=== PATIENT | female | born 1985 | race Caucasian/White ===

== ENCOUNTER → 2020-04-12 14:18 | Outpatient (CLI) | payer BC, SELFPAY ==
--- NOTE | ~2020-04-12 | XR_ITS ---
XR lumbar spine 2-3V 04/12/2020 14:37 Indication: Low back pain Procedure: 3 views lumbar spine Comparison: No prior studies for comparison. Findings: Vertebral body and disc heights are preserved. No fracture or traumatic malalignment. No ev idence for spondylolisthesis. Sacral foramen are symmetric. Pedicles intact. Small ventral osteophyte s at L3-4. Impression: 1: No significant abnormality of the lumbar spine. Reviewed, dictated and finalized at location B. Impression: 1: No significant abnormality of the lumbar spine.
== END ==
PROVIDERS: PCP Family Medicine; Visit Provider Nurse Practitioner
DX: M54.40 Lumbago with sciatica, unspecified side (principal)
CPT/HCPCS: 72100

== ENCOUNTER 2020-12-27 11:52 | Outpatient (CLI) | payer BC, SELFPAY ==
[2020-12-27 18:23] LABS: Basophils Absolute Auto 0.1 K/mm3 (0.0-0.1); Basophils Percent Auto 0.5 % (0.2-1.2); Eosinophils Percent Auto 0.3 % (0-4.4); Hematocrit 42.7 % (37.0-47.0); Hemoglobin 13.9 g/dL (12.0-15.0); Immature Granulocyte Absolute 0.03 K/mm3 (0.00-0.031); Immature Granulocyte Percent A 0.3 % (0-0.5); Lymphocytes Absolute Auto 2.83 K/mm3 (0.9-3.2); Lymphocytes Percent Auto 24.2 % (18.3-44.2); Mean Corpuscular HGB Conc 32.6 g/dl (32-36); Mean Corpuscular Hemoglobin 30.5 pg (26-34); Mean Corpuscular Volume 93.8 fl (80-100); Monocytes Absolute Auto 0.6 K/mm3 (0.1-0.6); Monocytes Percent Auto 5.3 % (2.6-8.5); Neutrophils Absolute Auto 8.1 K/mm3 (1.3-6.7); Neutrophils Percent Auto 69.4 % (45.5-73.1); Platelet Count Result 355 k/mm3 (150-375); Red Blood Count 4.55 M/mm3 (4.2-5.4); White Blood Count 11.7 K/mm3 (4.5-10.0)
[2020-12-27 18:26] LABS: Add Urine Microscopic? NO; Appearance Urine Clear (Clear); Bilirubin Urine Negative (Negative); Blood Urine Negative (Negative); Color Urine Yellow (Yellow); Glucose Urine UA Negative (Negative); Ketones Urine Negative (Negative); Leukocyte Esterase Ur Negative LEU/UL (Negative); Nitrate Urine Negative (Negative); Protein Urine Negative (Negative); Specific Grav Ur 1.014 (1.001-1.035); Urobilinogen Urine Negative mg/dL (<2.0)
[2020-12-27 20:31] LABS: Anion Gap 7 mmol/L (8-16); Blood Urea Nitrogen 20 mg/dL (7-17); CRP 0.9 mg/dL (<1.0); Calcium 9.6 mg/dL (8.4-10.2); Carbon Dioxide 26 mmol/L (22-30); Chloride 104 mmol/L (98-107); Estimated Glomerular Filt Rate > 60; Glucose 95 mg/dL (65-105); Potassium 4.2 mmol/L (3.4-5.0); Sodium 137 mmol/L (137-145)
[2020-12-27 20:58] LABS: Thyroid Stimulating Hormone 0.876 uIU/mL (0.465-4.680)
== END 2020-12-27 11:53 | disposition home or self-care (01) ==
LOC: ANHBWCLAB 11:55
PROVIDERS: PCP Family Medicine; Visit Provider Family Medicine
DX: R42 Dizziness and giddiness (principal); Z79.899 Other long term (current) drug therapy
CPT/HCPCS: 36415; 80048; 81003; 84443; 85025; 86140

== ENCOUNTER 2021-08-29 09:10 | Outpatient (CLI) | payer BC, SELFPAY ==
--- NOTE | ~2021-08-29 | XR_ITS ---
XR knee LT 3V 08/29/2021 09:24 Indication: Left knee pain Procedure: 3 views of the left knee Comparison: No prior studies for comparison. Findings: There is no mild-moderate tricompartment osteoarthritis of the left knee. Small joint effus ion. No fracture, subluxation or dislocation. Impression: 1: Mild-moderate tricompartment osteoarthritis of the left knee. Reviewed, dictated and finalized at location B. UNT ENGINEER Impression: 1: Mild-moderate tricompartment osteoarthritis of the left knee.
== END 2021-08-29 09:11 | disposition home or self-care (01) ==
LOC: ANHBWCIMG 09:12
PROVIDERS: PCP Family Medicine; Visit Provider Family Medicine
DX: M17.12 Unilateral primary osteoarthritis, left knee (principal); M25.462 Effusion, left knee
CPT/HCPCS: 73562

== ENCOUNTER 2021-11-30 09:37 | Outpatient (CLI) | payer BC, SELFPAY ==
[2021-11-30 18:56] LABS: Hematocrit 44.2 % (37.0-47.0); Hemoglobin 13.8 g/dL (12.0-15.0); Mean Corpuscular HGB Conc 31.2 g/dl (32-36); Mean Corpuscular Hemoglobin 30.7 pg (26-34); Mean Corpuscular Volume 98.2 fl (80-100); Mean Platelet Volume 9.6 fl (7.4-10.4); Platelet Count Result 330 k/mm3 (150-375); White Blood Count 8.4 K/mm3 (4.5-10.0)
[2021-11-30 19:00] LABS: Iron 141 ug/dL (37-170)
[2021-11-30 19:02] LABS: Alanine Aminotransferase 17 U/L (4-35); Albumin Level 4.2 g/dL (3.5-5.1); Alkaline Phosphatase 64 U/L (38-126); Anion Gap 10 mmol/L (8-16); Aspartate Amino Transferase 24 U/L (14-36); Bilirubin,Total 0.5 mg/dL (0.2-1.3); Blood Urea Nitrogen 20 mg/dL (7-17); Calcium 9.1 mg/dL (8.4-10.2); Carbon Dioxide 21 mmol/L (22-30); Chloride 104 mmol/L (98-107); Cholesterol 212 mg/dL (0-200); Estimated Glomerular Filt Rate > 60; Glucose 90 mg/dL (65-110); HDL Direct 92 mg/dL; Potassium 4.7 mmol/L (3.4-5.0); Sodium 135 mmol/L (137-145); Triglycerides 156 mg/dL (<150)
[2021-11-30 19:11] LABS: Percent Iron Saturation 36 % (20-50)
[2021-11-30 19:14] LABS: LDL Cholesterol Direct 86 mg/dL
[2021-11-30 21:20] LABS: SPREG INTERNAL CONTROL Positive; Serum Qual hCG Negative
== END 2021-11-30 09:38 | disposition home or self-care (01) ==
LOC: ANHBWCLAB 09:38
PROVIDERS: PCP Family Medicine; Visit Provider Family Medicine
DX: R42 Dizziness and giddiness (principal); R11.0 Nausea; R51.9 Headache, unspecified
CPT/HCPCS: 36415; 80053; 80061; 82607; 83540; 83550; 84703; 85027

== ENCOUNTER 2021-12-23 14:34 | Outpatient (CLI) | payer BC, SELFPAY ==
--- NOTE | ~2021-12-23 | CT_ITS ---
EXAMINATION: CT brain wo con EXAM DATE: 12/23/2021 14:50 INDICATION: R51.9 - Headache, unspecified. Dizziness and nausea. Symptoms 6 weeks. TECHNIQUE: Spiral CT of the head was performed without contrast. Axial, coronal and sagittal images were reviewed. The dose-length product (DLP) for this examination was 605.33 mGy-cm. The exposure w as tailored according to patient size, and iterative reconstruction (ASIR) was used as additional dos e reduction technique. There is no prior study for comparison. FINDINGS: There is no acute intraparenchymal hemorrhage. No evidence of intraparenchymal brain mass lesion. No evidence of acute infarction. There is no mass effect or midline shift. The ventricles are normal in size. There are no extra-axial collections. There are no acute calvarial fractures. T he orbits are unremarkable. Soft tissue is unremarkable. The visualized sinuses and mastoid air citlali ls are well aerated. IMPRESSION: 1. Unremarkable head CT examination. Reviewed, dictated and finalized at location G.
== END 2021-12-23 14:35 | disposition home or self-care (01) ==
LOC: ANHIMG 14:36
PROVIDERS: PCP Family Medicine; Visit Provider Family Medicine
DX: R51.9 Headache, unspecified (principal); R42 Dizziness and giddiness; R11.0 Nausea
CPT/HCPCS: 70450

== ENCOUNTER 2022-04-01 14:36 | Emergency (ER) | payer BC, SELFPAY ==
[2022-04-01 14:41] VITALS: BP 148/68; PULSE 117; RESP 16; TEMP 37.1; O2SAT 98
--- NOTE | 2022-04-01 14:50 | ED.GENADULT ---
HPI - General Adult General Chief complaint: Nausea/Vomiting/Diarrhea Stated complaint: Headache/Vomiting/Chills Time Seen by Provider: 04/01/22 14:51 Source: patient and RN notes reviewed Mode of arrival: ambulatory Limitations: no limitations History of Present Illness HPI narrative: 36-year-old female presented for complaint of headache, nausea, diarrhea, body aches onset yesterday. Denies sick contacts. She denies cough, shortness of breath, or vomiting. She took Tylenol this morning for symptoms. She is vaccinated for COVID. Related Data Home Medications Medication Instructions Recorded Confirmed norgestimate 0.25 mg-ethinyl 1 tablet PO DAILY 10/02/19 04/01/22 estradiol 35 mcg tablet (Sprintec (28)) adalimumab 40 mg/0.4 mL 40 mg subcut WEEKLY 12/27/20 04/01/22 subcutaneous syringe kit (Humira(CF)) Allergies Allergy/AdvReac Type Severity Reaction Status Date / Time No Known Allergies Allergy Verified 04/01/22 14:58 Review of Systems Review of Systems: CONSTITUTIONAL: Endorses malaise, chills EYES: Denies visual changes, redness, or discharge ENT: Reports rhinorrhea, congestion, otalgia, sore throat CARDIOVASCULAR: Denies chest pain, palpitations, edema RESPIRATORY: Reports post nasal drainage. Denies dyspnea GASTROINTESTINAL: Denies abdominal pain, vomiting SKIN: Denies rash or itching MUSCULOSKELETAL: Endorses myalgia PMFSH Past Medical History Medical History Endometriosis Tubal Surgical History Surgical History H/O section Hx of tonsillectomy Family History Family History Father Hypertension Family history of diabetes mellitus in first degree relative Family history of type 2 diabetes mellitus Mother Hypertension Patient's mother is in good health Grandparent Cancer Grandparent Heart attack Social History Social History Smoking packs per day: 1 Smoking cigarettes per day: 20.0 Years smoked: 10 Smoking pack-years: 10.00 Smoking status: Current every day smoker Second hand tobacco smoke exposure: No Smoking end date: 07/04/20 Alcohol intake: never Substance use: never Exam Narrative: GENERAL: Ill-appearing, tearful nontoxic no acute distress. EYES: conjunctivae clear ENT: Mucous membranes moist. TM pearly stone with dull light reflex bilaterally; no tragal tenderness. Oropharynx erythematous without lesions or exudate CHEST: Clear to auscultation, breath sounds equal. HEART: Regular rate and rhythm. No murmur heard. SKIN: Warm, dry, no rash. NEURO: Alert and oriented x3. PSYCH: Normal mood and affect Course Course Emergency Course: Patient is aware of diagnosis, understands and agrees to treatment plan. Anticipatory guidance given. Patient agrees to follow-up as directed and is aware of reasons to seek care at the emergency department. Portions of this record may have been created with voice recognition software Level of Care: Express Care Visit Vital Signs Vital signs: Vital Signs Temperature 98.8 F 04/01/22 14:41 Pulse Rate 117 H 04/01/22 14:41 Respiratory Rate 16 04/01/22 14:41 Blood Pressure 148/68 H 04/01/22 14:41 Pulse Oximetry 98 04/01/22 14:41 Oxygen Delivery Room Air 04/01/22 14:41 Temperature 98.8 F 04/01/22 14:59 Pulse Rate 117 H 04/01/22 14:59 Respiratory Rate 16 04/01/22 14:59 Blood Pressure 148/68 H 04/01/22 14:59 Pulse Oximetry 98 04/01/22 14:59 Oxygen Delivery Room Air 04/01/22 14:59 reviewed Medical Decision Making [facility] Narrative Medical decision making narrative: Zofran and tylenol given, pt reports mild improvement in symptoms. Pt is afebrile. Denies abd pain or cough/sob. Flu strep and covid negative; pcr sent. Adv
[2022-04-01 14:59] VITALS: BP 148/68; PULSE 117; RESP 16; TEMP 37.1; O2SAT 98
[2022-04-01] MEDS: ACETAMINOPHEN 500 MG TABLET 1000 MG PO (15:02)
[2022-04-01] MEDS: ONDANSETRON HCL ODT 4 MG TABLET SUBLINGUAL (15:03)
[2022-04-01 18:13] LABS: SARS-CoV-2 RNA PCR Positive
== END 2022-04-01 16:08 | disposition home or self-care (01) ==
PROVIDERS: Emergency Provider Nurse Practitioner Family; PCP Family Medicine
DX: U07.1 COVID-19 (principal); Z87.891 Personal history of nicotine dependence; N80.9 Endometriosis, unspecified
CPT/HCPCS: 87081; 87426; 87804; 87880; 99213; A9270; C9803; G0463; U0003; U0005

== ENCOUNTER 2022-08-23 13:53 | Emergency (ER) | payer BC, SELFPAY ==
--- NOTE | ~2022-08-23 | XR_ITS ---
EXAMINATION: XR chest 2V 08/23/2022 14:20 INDICATION: Chest pain PROCEDURE: PA and lateral views of the chest COMPARISON: 08/08/2017 FINDINGS: The lungs are clear. The cardiomediastinal silhouette is within normal limits. There are no pleural effusions. There is no pneumothorax suspected. IMPRESSION: 1: NO ACUTE CARDIOPULMONARY DISEASE. Reviewed, dictated and finalized at location B. EY TECHNICIAN
--- NOTE | ~2022-08-23 | US_ITS ---
EXAMINATION: US right upper quadrant DATE: 08/23/2022 16:43 INDICATION: epigastric pain TECHNIQUE: Multiple grayscale and Doppler ultrasound images of the right upper quadrant were obtained . COMPARISON: None available. FINDINGS: Pancreas obscured by bowel gas. The liver is enlarged with increased echogenicity and haider l echotexture. Decrease in the right lobe hemangioma. No surface nodularity. Normal hepatopetal flow in the main portal vein. 4 mm gallbladder wall. Positive sonographic Chacko sign. The common bile maryann t measures 4 mm. IMPRESSION: Sonographic findings may reflect acute cholecystitis in the appropriate clinical context. Echogenic l iver, most commonly due to steatosis but also can be seen with hepatitis and fibrosis. Reviewed, dictated and finalized at location K. RAL RESOURCES TECHNICIAN IMPRESSION: Sonographic findings may reflect acute cholecystitis in the appropriate clinica l context. Echogenic liver, most commonly due to steatosis but also can be seen with hepatitis and fibrosis.
--- NOTE | 2022-08-23 13:54 | ECG_ITS ---
Measurements Intervals Thurman Rate: 101 P: 69 DC: 146 QRS: 47 QRSD: 86 T: 2 QT: 317 QTc: 411 Interpretive Statements SINUS TACHYCARDIA NONSPECIFIC ST & T-WAVE ABNORMALITY- ANT/INF LEADS BORDERLINE ECG ABNORMAL RHYTHM ECG NO PREVIOUS ECG AVAILABLE FOR COMPARISON Electronically Signed On 08-23-2022 15:28:29 TEXTILE MACHINE MECHANIC by Khanh Villarreal D.O.
[2022-08-23 13:59] VITALS: BP 154/84; PULSE 97; RESP 16; TEMP 36.4; O2SAT 100
[2022-08-23 14:18] LABS: Basophils Percent Auto 0.4 % (0.2-1.2); Eosinophils Absolute Auto 0.1 K/mm3 (0-0.3); Eosinophils Percent Auto 0.5 % (0-4.4); Hematocrit 42.9 % (37.0-47.0); Immature Granulocyte Absolute 0.03 K/mm3 (0.00-0.031); Immature Granulocyte Percent A 0.3 % (0-0.5); Lymphocytes Percent Auto 31.7 % (18.3-44.2); Mean Corpuscular HGB Conc 32.6 g/dl (32-36); Mean Corpuscular Hemoglobin 30.8 pg (26-34); Mean Corpuscular Volume 94.5 fl (80-100); Mean Platelet Volume 9.2 fl (7.4-10.4); Monocytes Absolute Auto 0.5 K/mm3 (0.1-0.6); Monocytes Percent Auto 5.1 % (2.6-8.5); Neutrophils Absolute Auto 6.3 K/mm3 (1.3-6.7); Platelet Count Result 336 k/mm3 (150-375); Red Blood Count 4.54 M/mm3 (4.2-5.4); Red Cell Distribution Width 13.1 % (11.5-14.5); White Blood Count 10.1 K/mm3 (4.5-10.0)
[2022-08-23 14:26] LABS: Alanine Aminotransferase 24 U/L (6-35); Albumin Level 4.3 g/dL (3.5-5.1); Alkaline Phosphatase 62 U/L (38-126); Anion Gap 5 mmol/L (8-16); Aspartate Amino Transferase 27 U/L (14-36); Bilirubin,Total 0.5 mg/dL (0.2-1.3); Blood Urea Nitrogen 15 mg/dL (7-17); Calcium 9.1 mg/dL (8.4-10.2); Carbon Dioxide 25 mmol/L (22-30); Chloride 105 mmol/L (98-107); Estimated CRCL calculation 123 ml/min; Estimated Glomerular Filt Rate > 60; Glucose 88 mg/dL (65-110); Lipase 82 U/L (23-300); Potassium 4.1 mmol/L (3.4-5.0); Sodium 135 mmol/L (137-145)
[2022-08-23 14:29] LABS: Partial Thromboplastin Time 28.5 SECONDS (22.3-36.8); Prothrombin Time 12.4 Seconds (11.1-14.7)
[2022-08-23 14:38] LABS: Troponin I < 0.012 ng/mL (0.000-0.034)
[2022-08-23 16:24] VITALS: BP 96/81; PULSE 92; RESP 17; O2SAT 98
[2022-08-23 17:24] LABS: D Dimer 0.41 ug/mL (<0.48)
[2022-08-23 17:31] LABS: Troponin I < 0.012 ng/mL (0.000-0.034)
[2022-08-23] MEDS: MORPHINE SULFATE (*CRX) 4 MG/ML INJ IV PUSH (17:33)
--- NOTE | 2022-08-23 17:44 | ED.GENADULT ---
HPI - General Adult General Chief complaint: Chest Pain Stated complaint: chest, back pain Time Seen by Provider: 08/23/22 15:53 History of Present Illness HPI narrative: Patient is a 36-year-old female who presents ER with chest pain. Ongoing since yesterday morning. Constant. Has waves where the pain increases. It radiates to her back. Not associated with eating or drinking nor is associate with exertion. No dyspnea. No runny nose or sore throat or cough. Has found no alleviating factors. Related Data Home Medications Medication Instructions Recorded Confirmed adalimumab 40 mg/0.4 mL 40 mg subcut WEEKLY 12/27/20 04/01/22 subcutaneous syringe kit (Humira(CF)) Allergies Allergy/AdvReac Type Severity Reaction Status Date / Time No Known Allergies Allergy Verified 08/02/22 08:26 Review of Systems Review of Systems: All systems reviewed & are unremarkable except as noted in HPI and below Constitutional: Constitutional: Denies chills, Denies fatigue and Denies fever(s) ENT: Denies nasal congestion and Denies sore throat Cardiovascular: Cardiovascular: Reports chest pain, Denies rapid heart rate and Denies radiating jaw, neck or arm pain Comments: Radiates to the back Respiratory: Respiratory: Denies cough and Denies dyspnea Gastrointestinal: Gastrointestinal: Denies abdominal pain, Denies heartburn, Denies nausea and Denies vomiting Genitourinary: Genitourinary: Denies dysuria and Denies flank pain Musculoskeletal: Musculoskeletal: Reports back pain, Denies arthralgias and Denies joint swelling PMFSH Past Medical History Medical History Endometriosis Tubal Surgical History Surgical History H/O section Hx of tonsillectomy Family History Family History Father Hypertension Family history of diabetes mellitus in first degree relative Family history of type 2 diabetes mellitus Mother Hypertension Patient's mother is in good health Grandparent Cancer Grandparent Heart attack Social History Social History Smoking packs per day: 1 Smoking cigarettes per day: 20.0 Years smoked: 10 Smoking pack-years: 10.00 Smoking status: Current every day smoker Second hand tobacco smoke exposure: No Smoking end date: 07/04/20 Alcohol intake: never Substance use: never Exam Narrative: GENERAL: Well-appearing, well-nourished, and in no acute distress. HEAD: Normocephalic, atraumatic. EYES: PERRL and EOMI. ENT: Mucous membranes moist. CHEST: Clear to auscultation. No respiratory distress. HEART: Regular rate and rhythm. Normal peripheral pulses. ABDOMEN: Soft, nontender, nondistended, normal active bowel sounds. EXTREMITIES: Normal range of motion. No edema. SKIN: Warm, dry, no rash. NEURO: Alert and oriented x3. PSYCH: Normal mood and affect. Course Course Emergency Course: Symptoms seem consistent with gallbladder issues. Discussed case with Dr. Hughes with general surgery. Recommends treating patient with oral antibiotics, low-fat diet, and pain/nausea control. He will follow the patient up in clinic next week. Patient aware of return precautions and treatment plan is verbalized understanding. Vital Signs Vital signs: Vital Signs Temperature 97.6 F 08/23/22 13:59 Pulse Rate 97 08/23/22 13:59 Respiratory Rate 16 08/23/22 13:59 Blood Pressure 154/84 H 08/23/22 13:59 Pulse Oximetry 100 08/23/22 13:59 Oxygen Delivery Room Air 08/23/22 13:59 Temperature 97.6 F 08/23/22 13:59 Pulse Rate 92 08/23/22 16:24 Respiratory Rate 17 08/23/22 16:24 Blood Pressure 96/81 L 08/23/22 16:24 Pulse Oximetry 98 08/23/22 16:24 Oxygen Delivery Room Air 08/23/22 13:59 Medical Decision Making V
[2022-08-23 18:16] VITALS: BP 125/85; PULSE 86; RESP 20; O2SAT 99
== END 2022-08-23 18:17 | disposition home or self-care (01) ==
PROVIDERS: Emergency Provider Emergency Medicine; PCP Family Medicine
DX: K81.9 Cholecystitis, unspecified (principal); N80.9 Endometriosis, unspecified; Z87.891 Personal history of nicotine dependence; R00.0 Tachycardia, unspecified; R94.31 Abnormal electrocardiogram [ECG] [EKG]
CPT/HCPCS: 36415; 71046; 76705; 80053; 83690; 84484; 85025; 85380; 85610; 85730; 93005; 96374; 99284; J2270

== ENCOUNTER 2022-09-05 10:02 | Outpatient (CLI) | payer BC, SELFPAY ==
[2022-09-05 11:01] LABS: Amylase 97 U/L (30-110)
== END 2022-09-05 10:03 | disposition home or self-care (01) ==
PROVIDERS: PCP Family Medicine; Visit Provider Surgery
DX: Z01.818 Encounter for other preprocedural examination (principal); K80.00 Calculus of gallbladder with acute cholecystitis without obstruction
CPT/HCPCS: 36415; 82150; 86850; 86900; 86901

== ENCOUNTER 2022-09-07 01:15 | Day surgery (SDC) | payer BC, SELFPAY ==
[2022-09-01 13:03] VITALS: BMI 40.7
--- NOTE | 2022-09-01 13:08 | PC.NURSE ---
Report to the Outpatient Waiting Room, entrance under the green pavilion located off [facility], at time 12:00 on date 09/07/22. Planned Procedure Time: 2:00. Time changes happen often and if your time is changed the preop area will call you the afternoon before. - You and your visitor will be asked to self-screen and do not enter if you have any COVID symptoms. - Only one visitor is requested with a max of two and NO children visitors are allowed at this time. - The patient visitor may be requested to leave or wait in car when not with patient due to distancing restrictions. - A mask is optional within the hospital. Patients may have clear liquids (water, carbonated beverages, clear teas, apple juice) until 3 hours prior to surgery (11:00) with a maximum of 20 ounces. - No food from midnight until time of surgery Take the following medications with a SIP of water the morning of surgery: WELLBUTRIN. PAIN PILL, LORAZEPAM, VALTREX IF NEEDED Medications to discontinue per physician: N/A Date to take last dose: N/A Please no make-up, nail sami, hairspray, perfume, deodorant, or body powder the day of surgery. No jewelry (including any body piercings) or valuables the day of surgery, leave them at home. Please take a shower or bath the night before, or the morning of, surgery with an antibacterial soap (HIBICLENS). Wear comfortable, loose fitting clothing. - Jewelry must be removed prior to entering the operating room. Rings and piercings that are not removed may be cut off. - The hospital will not accept responsibility for valuables. - Please leave all valuables, including medications, at home the day of surgery. If you are going home after surgery, a licensed charter and tour bus driver must drive you home. - NO public transportation without another adult if you receive anesthesia. - We recommend that an adult stay with you for 24 hours following discharge. - We also recommend that you do not drive, make important decision, drink alcoholic beverages, or take any drugs that were not prescribed by your health care provider for at least 24 hours after your discharge time. Follow any additional instructions given to you from your surgeon. If you or anyone in your household have experienced Covid symptoms in the past week, please notify your surgeon or the nurse liaison at the phone number below for possible testing. Telephone instructions given to PT - ZULEYMA MABRY and asked if any additional questions and then verbalized understanding. Patient advised to call surgeon office or pre surgery nurse liaison [phone] if any additional questions.
--- NOTE | 2022-09-06 11:07 | WPDANESEPPF ---
Anes - Initial Pre Proc Eval Procedure: Operation Date: 09/07/22 14:00 Proposed Procedures p Laparoscopic Cholecystectomy - Bev Hughes MD Date/Time: 09/06/22 11:07 Surgeon: Bev Hughes MD Pre Op Diagnosis: acute cholecystitis with stones Patient Data Age: 36 Gender: F Height: 1.77 m Weight: 127 kg Allergies Allergy/AdvReac Type Severity Reaction Status Date / Time No Known Allergies Allergy Verified 09/01/22 13:01 Home Medications Medication Instructions Recorded Confirmed Type adalimumab 40 mg/0.4 mL 40 mg subcut WEEKLY 12/27/20 09/01/22 History subcutaneous syringe kit (Humira(CF)) fluticasone propionate 50 1 spray intranasal Q12H #16 grams 04/23/22 09/01/22 Rx mcg/actuation nasal spray,suspension (Flonase Allergy Relief) bupropion HCl 150 mg 24 hr tablet, 150 mg PO QAM #90 tabs 08/02/22 09/01/22 Rx extended release lorazepam 0.5 mg tablet (Ativan) 0.5 mg PO DAILY PRN agitation #20 08/02/22 09/01/22 Rx tabs valacyclovir 500 mg tablet 500 mg PO Q12H cold sores #6 tabs 08/02/22 09/01/22 Rx (Valtrex) fluconazole 150 mg tablet 150 mg PO ONCE #1 tablet 08/28/22 09/01/22 Rx hydrocodone 5 mg-acetaminophen 325 1 tablet PO Q6H PRN pain #20 tabs 08/28/22 09/01/22 Rx mg tablet ondansetron 4 mg disintegrating 4 mg PO Q6H PRN nausea and 08/28/22 09/01/22 Rx tablet vomiting #10 tabs Patient hx anesthesia problems: none Family hx anesthesia problems: none Results Review: All pre-operative results and documents have been reviewed as part of the pre-operative evaluation. [facility] Past Medical History Medical History Anxiety Endometriosis GERD (gastroesophageal reflux disease) Tubal Surgical History Surgical History H/O section H/O LEEP Hx of tonsillectomy Family History Family History Father Hypertension Family history of type 2 diabetes mellitus Mother Hypertension Patient's mother is in good health Grandparent Cancer Grandparent Heart attack Social History Social History Smoking packs per day: 1.5 Smoking cigarettes per day: 30.0 Years smoked: 10 Smoking pack-years: 15.00 Smoking status: Former smoker Tobacco type: cigarettes Second hand tobacco smoke exposure: No Smoking end date: 07/04/20 Alcohol intake: current Alcohol use details: ONCE A MONTH Substance use: never Substance use type: does not use Living arrangements: with family Additional occupation/education comments: [employer] Spiritual care concerns: No Anes - Eval Final PreProcedure Day of Procedure 09/06/22 11:07 Patient weight: morbidly obese Heart: regular rate and rhythm Lungs: clear to auscultation Airway: Mallampati scale class II Neurological: alert and oriented Last oral intake: >/= 8 hours ASA classification: III Emergent: no Anesthetic plan: proceed Anesthesia type and monitoring: general ETT and standard monitoring Results Review: All pre-operative results and documents have been reviewed as part of the pre-operative evaluation. Informed Consent: The patient's anesthetic plan and its attendant risks and benefits were discussed with the patient/family/POA. Questions were solicited and answers provided to the satisfaction of the patient/family/POA.
[2022-09-07] VITALS (11 sets, daily range): BP systolic 114–149; BP diastolic 71–87; PULSE 77–106; RESP 14–18; TEMP 36.3; O2SAT 92–100
--- NOTE | 2022-09-07 11:52 | WPDHPUPDATE1 ---
History and Physical Update Update Date/Time: 09/07/22 11:52 History and Physical has been reviewed, including an updated exam of the patient. There are NO changes in the patient's condition. Risks, benefits, and alternatives have been discussed and questions answered. Patient agrees to proceed with procedure.
[2022-09-07] MEDS: ACETAMINOPHEN 500 MG TABLET 1000 MG PO (13:14)
[2022-09-07] MEDS: LACTATED RINGERS 1,000 ML 30 ML IV CONT ×2 (13:30→14:50)
[2022-09-07] MEDS: KETOROLAC 15 MG/ML VIAL (*BKC) IV PUSH (13:31)
[2022-09-07] MEDS: ceFAZolin 3 GM/D5W 100 ML 100 ML IVPB (13:58)
[2022-09-07] MEDS: LIDO 1%/EPINEPHRINE/PF 1:200,000 30 ML VIAL XX (14:41)
--- NOTE | 2022-09-07 14:47 | W.PM.PROC2 ---
Procedure Note - Detailed Date of Procedure 09/07/22 Pre-op Diagnosis acute cholecystitis with stones Post-op Diagnosis Same Procedure Performed Laparoscopic cholecystectomy Surgeon Bev Hughes MD Anesthesia General Indications 36-year-old female presented to the office complaining of postprandial right upper quadrant abdominal pain associated with nausea and vomiting. Pt initially seen in ED and workup including imaging significant for cholecystitis, cholelithiasis. Findings Cholecystitis with cholelithiasis Description of Procedure The patient was taken to the operating room placed in the supine position. After adequate induction of general anesthesia, the patient was prepped and draped in normal sterile fashion. A time-out was then performed to verify the patient's identity as well as the procedure being performed. I then made a 5 mm incision in the infraumbilical region. Through this, a Veress needle was placed into the peritoneal cavity and CO2 gas was then insufflated. After adequate pneumoperitoneum was achieved, the Veress needle was removed and a 5 mm optiview trocar was placed through this incision under direct visualization. I then placed the laparoscope through this trocar site and under direct visualization placed a further 12 mm subxiphoid port as well as 2 additional 5 mm ports in the right upper abdomen. The gallbladder was then identified and was noted to be inflamed and distended. There was noted to be a large amount of peritoneal fat and omentum adhesed to the gallbladder. These adhesions were taken down bluntly and with the bovie cautery. I was able to place a grasper at the dome of the gallbladder and this was retracted anterior and cephalad up over the liver. A 2nd retractor was then placed at the infundibulum and retracted laterally, this allowed visualization of the triangle of Calot. I then was able to visualize the cystic duct in its entirety from its proximal insertion into the gallbladder, to its distal junction with the common hepatic/common bile duct junction. At this point, I carefully skeletonized the proximal cystic duct with the [place] dissector. I then clipped and transected the proximal cystic duct. Next I visualized the cystic artery. Again the artery was skeletonized, clipped, and transected. I then used the Bovie cautery to take down the peritoneal attachments of the gallbladder off the liver bed. Once the gallbladder specimen was completely detached, an endo-pouch was placed through the 12 mm port site. I then placed the gallbladder specimen into the Endo pouch and removed the endo-pouch from the 12 mm port site. The specimen will now be sent to pathology for further review. I then copiously irrigated the right upper quadrant. Hemostasis was noted in the liver bed, the clips were noted to be in good position on both the cystic duct stump and the cystic artery stump. No other pathology was noted in the right upper quadrant. I then moved the laparoscope to the subxiphoid port. No iatrogenic injury or other pathology was noted in the lower abdomen. I then closed the 12 mm trocar site under direct visualization using the Damian cone and 0 Vicryl suture. At this point, the abdomen was desufflated and all ports removed. All port sites were then closed with 4.O Monocryl subcuticular sutures. Dermabond was placed on each incision. The patient tolerated the procedure well, was extubated in the operating room postoperative and will be transferred to the recovery room in stable condition Estimated Blood Loss 5 Drains No Packing No Pathology Yes Complications No immediate complications Condition Stable Disposition PACU [facility] Billing Surgery - Charge Forward: Surgery Billing
[2022-09-07] MEDS: fentaNYL CITRATE INJ (*CRX) 100 MCG/2 ML VIAL 25 MCG IV PUSH ×8 (14:55→15:16)
[2022-09-07] MEDS: ONDANSETRON INJ 4 MG/2 ML VIAL IV PUSH (15:07)
[2022-09-07] MEDS: HYDROmorphone HCL INJ (*CRX) 1 MG/ML SYR 0.5 MG IV PUSH ×2 (15:24→15:30)
[2022-09-07] MEDS: oxyCODONE HCL (*CRX) 5 MG TAB IR PO (16:25)
== END 2022-09-07 17:15 | disposition home or self-care (01) ==
PROVIDERS: PCP Family Medicine; Visit Provider Surgery
PROC: 0FT44ZZ Resection of Gallbladder, Percutaneous Endoscopic Approach (ICD-10-PCS; CPT 47562; principal; 2022-09-07 14:00)
DX: K82.4 Cholesterolosis of gallbladder (principal); K21.9 Gastro-esophageal reflux disease without esophagitis; F41.9 Anxiety disorder, unspecified; Z87.891 Personal history of nicotine dependence; E66.01 Morbid (severe) obesity due to excess calories; Z68.41 Body mass index [BMI] 40.0-44.9, adult
CPT/HCPCS: 47562; 36415; 82150; 86850; 86900; 86901; 88304; A9270; J0330; J0690; J1100; J1170; J1885; J2250; J2405; J2704; J2710; J3010; J7030; J7120

== ENCOUNTER 2023-10-17 07:53 | Emergency (ER) | payer OTHER, SELFPAY ==
--- NOTE | ~2023-10-17 | CT_ITS ---
EXAMINATION: CT thoracic lumbar wo con DATE: 10/17/2023 09:54 INDICATION: Back injury lifting weights. Left leg pain. TECHNIQUE: Computed tomography (CT) of the thoracic and lumbar spine was performed without intravenou s contrast. Automated exposure control and iterative reconstruction technique were employed. Exam dos e: 2316.99 mGy-cm total exam DLP. COMPARISON: None FINDINGS: No fracture or dislocation or bone destruction of the thoracic spine. There is mild degener ative spurring, primarily at T7-T9. There is borderline primary lumbar spinal stenosis with AP midline lumbar spinal canal diameter of 12 -13 mm at L4 and L5. The lumbar vertebrae are normally aligned, without fracture or bone destruction, spondylolysis or spo ndylolisthesis. There is moderate anterior spurring at L3-4 and mild anterior spurring at L2-3 and L4 -5, but lumbar disc spaces are relatively preserved. Status post cholecystectomy. Left hydronephrosis and/or parapelvic cysts. IMPRESSION: Borderline primary lumbar spinal stenosis, with superimposed secondary spinal stenosis a t L4-5 due to facet and ligamentum flavum hypertrophy No fracture or bone destruction of the thoracic or lumbar spine Status post cholecystectomy Left hydronephrosis and/or parapelvic left renal cysts Reviewed, dictated and finalized at Location A. Reviewed, dictated and finalized at location B. WINDING MACHINE TENDER IMPRESSION: Borderline primary lumbar spinal stenosis, with superimposed secon rachel spinal stenosis at L4-5 due to facet and ligamentum flavum hypertrophy No fracture or bone destruction of the thoracic or lumbar spine Status post cholecystectomy Left hydronephrosis and/or parapelvic left renal cysts
[2023-10-17 07:57] VITALS: BP 134/93; PULSE 83; RESP 16; TEMP 36.4; O2SAT 100
--- NOTE | 2023-10-17 08:07 | ED.BACK ---
HPI - Back Pain/Injury General Chief Complaint: Back Pain/Injury Stated Complaint: back pain Time Seen by Provider: 10/17/23 07:59 History of Present Illness HPI Narrative: Patient is a 38-year-old female who presents emergency department this morning complaining lower lumbar back pain. Patient states that she was at the gym yesterday exercising and lifting weights and was doing well until she got home. Patient started to notice that she was having some lower back pain but at that time it was not sent. Patient was able to go to sleep. This morning, patient woke up and states that the pain has just been getting worse and worse throughout the night and now she is having trouble sitting upright due to the pain and states that any time she lifts her left lower extremity it makes the pain much worse. Laying flat on her back is this physician for her back pain. She denies any direct trauma to her back or any recent falls. Patient also denies any bowel or bladder incontinence and states that she has been able to use the bathroom since the incident without any issues. Patient denies any red flags including unexplained weight loss, any neurological symptoms, any history of IV drug use or recent steroid use, any family history or personal history of cancer. Patient also denies any additional symptoms including chest pain, shortness of breath, nausea, vomiting, abdominal pain, dysuria, hematuria, constipation, diarrhea, melena, hematochezia, fevers or chills. Patient also denies any headaches, dizziness, lightheadedness, blurry visions, focal weakness, numbness and or tingling. There are no other modifying, alleviating, or precipitating factors at this time. Related Data Allergies Allergy/AdvReac Type Severity Reaction Status Date / Time No Known Allergies Allergy Verified 10/17/23 08:03 Review of Systems Review of Systems: All systems are reviewed and are negative unless stated otherwise in the HPI. [facility] Past Medical History Medical History Anxiety Endometriosis GERD (gastroesophageal reflux disease) Tubal Surgical History Surgical History H/O section H/O LEEP Hx laparoscopic cholecystectomy 09/07/[address] Hughes. Hx of tonsillectomy Family History Family History Father Hypertension Family history of type 2 diabetes mellitus Mother Hypertension Patient's mother is in good health Grandparent Cancer Grandparent Heart attack Social History Social History Smoking packs per day: 1.5 Smoking cigarettes per day: 30.0 Years smoked: 10 Smoking pack-years: 15.00 Smoking status: Former smoker Tobacco type: cigarettes Second hand tobacco smoke exposure: No Smoking end date: 07/04/20 Alcohol intake: current Alcohol use details: ONCE A MONTH Substance use: never Substance use type: does not use Lack of Transportation: No Lack of Food: Never True Current Housing: I Have Housing Concerned About Future Housing: No Difficulty Paying Gas/Electric Bills: No Difficulty Paying for Meds: No Currently Unemployed: No Education: High School Diploma/GED Difficulty w/ Childcare or Family Care: No Living arrangements: with family Occupation/Education: occupation 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 HEENT: PERRL, no rhinorrhea, no post nasal drip, oropharynx clear. Neck: Trachea midline, no JVD, no lymphadenopathy. Cardiovascular: Regular rate and rhythm, no murmurs, rubs or gallops, no peripheral edema. Respiratory: Clear to auscultation bilaterally, no tachypnea, no
[2023-10-17] MEDS: HYDROcodone/acetaminophen (*CRX) 5-325 MG TABLET 1 TAB PO (09:35)
[2023-10-17 11:28] VITALS: BP 134/78; PULSE 73; RESP 20; O2SAT 99
== END 2023-10-17 11:30 | disposition home or self-care (01) ==
PROVIDERS: Emergency Provider Emergency Medicine; PCP Family Medicine
DX: S39.012A Strain of muscle, fascia and tendon of lower back, initial encounter (principal); M54.16 Radiculopathy, lumbar region; F41.9 Anxiety disorder, unspecified; K21.9 Gastro-esophageal reflux disease without esophagitis; X50.0XXA Overexertion from strenuous movement or load, initial encounter
CPT/HCPCS: 72100; 72128; 72131; 72220; 99284; A9270

== ENCOUNTER 2023-10-17 15:48 | Outpatient (CLI) | payer OTHER, SELFPAY ==
--- NOTE | ~2023-10-17 | XR_ITS ---
EXAMINATION: XR lumbar spine 2-3V DATE: 10/17/2023 16:09 INDICATION: Severe low back pain. TECHNIQUE: 3 views of lumbar spine were obtained. COMPARISON: Lumbar spine radiographs 04/12/2020 FINDINGS: There is 11 degrees levoscoliosis of lumbar spine. There is mild chronic anterior wedging o f L1 vertebral body. There are endplate osteophytes at most levels. There is mildly decreased disc he ight at L2-L3. There is severe facet joint osteoarthritis in the lower lumbar spine. Surgical clips i n the right upper quadrant are likely from cholecystectomy. IMPRESSION: 1. Mild lumbar spondylosis. 2. Lumbar levoscoliosis. Reviewed, dictated and finalized at location E. NETWORK ARCHITECT
--- NOTE | ~2023-10-17 | XR_ITS ---
EXAMINATION: XR sacrum coccyx min 2V DATE: 10/17/2023 16:09 INDICATION: Severe low back pain. TECHNIQUE: 2 views of the sacrum and coccyx standing were obtained. COMPARISON: None. FINDINGS: There is lumbar levoscoliosis and mild spondylosis. No fracture. There is moderate osteoart hritis of right hip and mild osteoarthritis of left hip. There is mild osteoarthritis of the sacroili ac joints. IMPRESSION: 1. Polyarticular osteoarthritis. 2. Lumbar levoscoliosis and mild spondylosis. Reviewed, dictated and finalized at location E. COPY WRITER
== END 2023-10-17 15:49 | disposition home or self-care (01) ==
LOC: ANHBWCIMG 15:49
PROVIDERS: PCP Nurse Practitioner Adult Health; Visit Provider Nurse Practitioner Adult Health
DX: M51.36 Other intervertebral disc degeneration, lumbar region (principal); M47.26 Other spondylosis with radiculopathy, lumbar region
CPT/HCPCS: 72100; 72220

== ENCOUNTER 2024-05-29 07:35 | Outpatient (CLI) | payer OTHER, SELFPAY ==
[2024-05-29 19:16] LABS: Hemoglobin 13.5 g/dL (12.0-15.0); Mean Corpuscular HGB Conc 31.4 g/dl (32-36); Mean Corpuscular Volume 101.9 fl (80-100); Mean Platelet Volume 9.7 fl (7.4-10.4); Platelet Count Result 358 k/mm3 (150-375); Red Blood Count 4.22 M/mm3 (4.2-5.4); Red Cell Distribution Width 13.9 % (11.5-14.5); White Blood Count 8.5 K/mm3 (4.5-10.0)
[2024-05-29 19:31] LABS: Alanine Aminotransferase 19 U/L (6-35); Alkaline Phosphatase 52 U/L (38-126); Anion Gap 6 mmol/L (4-12); Aspartate Amino Transferase 74 U/L (14-36); Bilirubin,Total 0.6 mg/dL (0.2-1.3); Blood Urea Nitrogen 15 mg/dL (7-17); Carbon Dioxide 29 mmol/L (22-30); Chloride 101 mmol/L (98-107); Cholesterol 154 mg/dL (0-200); Estimated Glomerular Filt Rate > 60; Glucose 79 mg/dL (65-110); HDL Direct 71 mg/dL; Sodium 136 mmol/L (137-145); Triglycerides 84 mg/dL (<150)
[2024-05-29 19:37] LABS: Rheumatoid Factor < 12.0 IU/ML (<12)
[2024-05-29 19:42] LABS: LDL Cholesterol Direct 56 mg/dL
[2024-05-29 19:48] LABS: Erythrocyte Sedimentation Rate 12 mm/hr (0-20)
[2024-05-30 14:09] LABS: ANA Cascade Screen NEGATIVE (NEGATIVE)
== END 2024-05-29 07:36 | disposition home or self-care (01) ==
PROVIDERS: PCP Nurse Practitioner Adult Health; Visit Provider Nurse Practitioner Adult Health
DX: Z13.9 Encounter for screening, unspecified (principal); M13.0 Polyarthritis, unspecified
CPT/HCPCS: 36415; 80053; 80061; 84443; 85027; 85652; 86038; 86225; 86235; 86364; 86430

== ENCOUNTER 2025-06-20 09:58 | Emergency (ER) | payer OTHER, SELFPAY ==
--- NOTE | ~2025-06-20 | XR_ITS ---
Examination: XR chest 2V Clinical History: chest pain Comparison: 08/23/2022 Technique: PA and Lateral Findings: Cardiomediastinal silhouette normal size and configuration. Lungs clear. No acute bony abnormality. IMPRESSION: 1. No acute cardiopulmonary findings. Reviewed, dictated and finalized at location R.
--- NOTE | ~2025-06-20 | CT_ITS ---
Mery Betancur EXAMINATION: CT abdomen pelvis w con COMPARISON: None HISTORY: Abdominal pain TECHNIQUE: Axial images were obtained through the abdomen, pelvis post administration of IV contrast. Oral contrast was also administered. Coronal reconstruction images were obtained from the axial views. CT scan performed using dose optimization techniques including the following automated exposure control; adjustment of mA and/or kV; use of iterative reconstruction technique. Automatic exposure control was used to reduce radiation dose. Permanent radiation dose record is archived to PACS. FINDINGS: CT abdomen: LUNG BASES: The lung bases are clear. The visualized portions of the heart and pericardium are unremarkable. LIVER: Within the liver there are complex appearing liver lesions the largest right lobe 2 x 2.5 cm incompletely evaluated., Outpatient contrast-enhanced MRI is recommended. Portal vein patent. No intrahepatic biliary duct dilatation. SPLEEN: Punctate calcified splenic granulomas.. KIDNEYS: Right Kidney: Unremarkable. No calculi. No hydronephrosis. Left Kidney: Left kidney large simple appearing probable peripelvic renal cysts the largest 4 x 3 cm. ADRENAL GLANDS: Unremarkable. PANCREAS: Unremarkable. GALLBLADDER/BILIARY: Postcholecystectomy. STOMACH AND ESOPHAGUS: Visualized stomach and esophagus within normal limits. BOWEL/MESENTERY: Moderate fecal content. No colitis or diverticulitis. Appendix normal. Mesentery normal. Small bowel normal. ADENOPATHY/RETROPERITONEUM: No lymphadenopathy. AORTA/VASCULATURE: Normal caliber aorta. FREE FLUID OR FREE AIR: No free fluid.. CT pelvis: SOLID ORGANS/REPRODUCTIVE: Unremarkable. BLADDER: Within normal limits. OSSEOUS STRUCTURES: No acute osseous abnormality.No suspicious lesions. OVERLYING SOFT TISSUES: Unremarkable. IMPRESSION: 1. No acute intra-abdominal process. Incidental findings above Reviewed, dictated and finalized at location A.
[2025-06-20 10:00] VITALS: BP 150/98; PULSE 82; RESP 18; TEMP 36.4; O2SAT 100
--- OUTSIDE RECORDS SUMMARY | 2025-06-20 10:00 | XMS_ITS | Clinical Summary ---
Author Organization [facility] [address] Address [address] [place] [address] Phone Care Team Providers Care Quality Checker Name Role Phone No, Physician Primary Care Provider [phone] Allergies No known active allergies Medications No known medications Active Problems Problem Noted Date Diagnosed Date Obesity (BMI 30-39.9) 03/11/2018 Endometriosis 03/02/2015 Overview (01/04/2017): Endometriosis Infertile 03/02/2015 Overview (01/04/2017): Infertility Encounters Date Type Department Care Team Description 05/27/2025 10:10 AM CDT Office Visit [facility] [address] [place] [phone] Suad Ellis MD Encounter for gynecological examination without abnormal finding (Primary Dx); Endometriosis; Menorrhagia with irregular cycle 05/25/2025 Telephone [facility] [address] [place] [address] Suad Ellis MD Appointment Reminder Call 04/13/2025 Results Follow-Up [facility] [address] [place] [address] Suad Ellis MD N. gonorrhoeae/C. trachomatis Amplification Vaginal, Vaginitis panel Vaginal 04/10/2025 3:25 PM CDT - 04/10/2025 11:59 [place] [address] Screen for sexually transmitted diseases; Acute vaginitis Discharge Disposition: Discharge to home or self care 04/10/2025 3:15 PM CDT Office Visit [facility] [address] [place] [address] Suad Ellis MD Acute vaginitis (Primary Dx); Screen for sexually transmitted diseases 04/06/2025 Telephone [facility] [address] [place] [address] Suad Ellis MD Patient issue/concern; Medication from Last 3 Months Surgical History Surgery Date Site/Laterality Comments OTHER SURGICAL HISTORY 10/01/2008 - 09/30/2009 hx. of abnormal paps; HPV (+) but no other details known: LEEP SALPINGECTOMY 10/01/2013 - 09/30/2014 Right , ectopic: Laparoscopic right salpingectomy SECTION 10/01/2006 - 09/30/2007 : LAPAROSCOPIC ENDOMETRIOSIS FULGURATION Endometriosis: Laparoscopic excision of endometriosis-Dr. Garcia Medical History Medical History Date Comments Hx Other Medical 2008 hx. of abnormal paps; HPV (+) but no other details; Outcome: normal since then Hx Other Medical , ecto pic; Comments: Right salpingectomy Endometriosis 2012 Family History Medical History Relation Name Comments Hypertension Father Hypertension; Other Father cardiac stent f or angina; Diabetes Maternal Grandfather Diabete s mellitus; Other Maternal Grandfather 3 VA's; Cause of : 3 VA's Other Maternal Grandmother Cancer, ? type; Hypertension Mother Hypertension; Breast cancer Mother's Sister 2 Cancer, b reast; Cause of : Cancer, breast Other Other No family histo ry of Osteoporosis; Relation Name Status Comments Father Maternal Grandfather (Age 78) Maternal Grandmother Mother Mother's Sister 1 Alive Mother's Sister 2 Other Social History Tobacco Use Types Packs/Day Years Used Date Smoking Tobacco: Former Vaping Smokeless Tobacco: Never Tobacco Cessation:Counseling Given: Not Answered Comments:Smoking History Packs/day: 1 Packs Alcohol Use Standard Drinks/Week Comments Yes 0 (1 standard drink = 0.6 oz pur e alcohol) Comments No Sex and Gender Information Value Date Recorded Sex Assigned at Not on file Legal Sex 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 Denies any other pg. complications. Last Filed Vital Signs Vital Sign Reading Time Taken Comments Blood Pressure 102/78 05/27/2025 10:04 AM CDT Pulse - - Temperature - - Respiratory Rate - - Oxygen Saturation - - Inhaled Oxygen Concentration - - Weight 104.3 kg (230 lb) 05/27/2025 10:04 AM CDT Height 175.3 cm (5' 9) 05/27/2025 10:04 AM CDT Body Mass Index 33.97 05/27/2025 10:04 AM CDT Plan of Treatment Health Maintenance Due Date Last Done Comments Depression Screening 1986 Hepatitis C Screening 1986 DTaP/Tdap/Td Vaccine (1 - Tdap) 1997 Varicella Vaccines (1 of 2 - 13+ 2-dose series) 1999 Hepatitis B Screening 2004 HPV Vaccines (1 - 3-dose SCDM series) 2013 Cervical Cancer Screening 05/21/20242022, 05/21/2023, 03/11/2018, Additional history exists Influenza Vaccine (#1) 2025 Regular Well Visit/Exam 18-64 05/27/2026 05/27/2025, 05/26/2024, 05/21/2023, Additional history exists Pneumococcal vaccine <65 Aged Out No longer eligible based on patient's age to complete this topic Procedures Procedure Name Priority Date/Time Associated Diagnosis Comments VAGINITIS PANEL Routine 04/10/2025 3:25 PM CDT Acute vaginitis N. GONORRHOEAE/C. TRACHOMATIS AMPLIFICATION Routine 04/10/2025 3:25 PM CDT Screen for sexually transmitted diseases HIGH RISK HPV DNA DETECTION WITH GENOTYPING Routine 05/21/2023 3:54 PM CDT Screening for malignant neoplasm of the cervix from Last 3 Months or Most Recently Relevant to Health Maintenance Results * N. gonorrhoeae/C. trachomatis Amplification Vaginal (04/10/2025 3:25 PM CDT) C. trachomatis Not Detected [facility] Comment:Testing performed by : [facility], [address] [place] [address]., [id number] N. gonorrhoeae Not Detected [facility] Comment: Interpretive Data This assay detects Chlamydia trachomatis and Neisseria gonorrhoeae by nucleic acid amplification testing (NAAT). This assay has been cleared by the [place] Food and Drug administration. The performance characteristics of this test have been verified by the [facility] Molecular Infectious Disease laboratory. The performance characteristics of this test have not been evaluated in individuals less than 14 years of age. Current Interpretive Data was last revised on 2023. Testing performed by: [facility], [address] [place] [address]., [id number] Vaginal 04/10/2025 3:25 PM CDT 04/10/2025 10:21 PM CDT Suad Ellis MD LAB MICROBIOLOGY - NERAL ORDERABLES Final Result [facility] [id number] Department [place] [address] [facility] * (ABNORMAL) Vaginitis panel Vaginal (04/10/2025 3:25 PM CDT) Bacterial Vaginosis Detected(A) Not Detected [facility] Comment:The BV organism targ ets of this test can be commensal in women; results should be considered in conjunction with clinical presentation to determine the disease status. Cecile group Not Detected Not Detected [facility] Cecile glabrata/ krusei Not Detected Not Detected [facility] Trichomonas DNA Not Detected Not Detected [facility] Vaginal 04/10/2025 3:25 PM CDT 04/10/2025 8:08 PM CDT Narrative [facility] - 04/10/2025 9:17 PM CDT The CepBandspeed Xpert Xpress MVP test detects DNA targets from anaerobic bacteria associated with bacterial vaginosis, Cecile species associated with vulvovaginal candidiasis, and Trichomonas vaginalis by nucleic acid amplification testing (NAAT). Results should be interpreted in conjunction with other clinical data. This test cannot be used to assess therapeutic success or failure because target nucleic acids may persist following antimicrobial therapy. This test has been cleared by the [place] Food and Drug Administration to aid in the diagnosis of vaginal infections in symptomatic women ages 14 and older. The performance characteristics of this test have been verified by the [facility]. Suad Ellis MD LAB MICROBIOLOGY - [facility] ORDERABLES Final Result [facility] [address] [place] [address] * High Risk HPV DNA Detection with Genotyping (Molecular component) (05/21/2023 3:54 PM CDT) HPV HR 16 Not Detected Not Detected [facility] Comment:Testing performed by : [facility], [address] [place]., [address] HPV HR 18 Not Detected Not Detected [facility] Comment:Testing performed by : [facility], [address] [place]., [address] HPV HR Non 16/18 Not Detected Not Detected [facility] Comment: Interpretive Data Nucleic acid amplification for detection of high-risk Human Papilloma virus (HPV) is performed by the Keshav Cristo 6800 HPV test. This assay specifically detects HPV-16 and HPV-18 genotypes. The following HPV genotypes are detected as high-risk HPV: HPV-31, 33, 35, ,39, 45, 51, 52, 56, 58, 59, 66, and 68. This assay has been approved by the [place] Food and Drug Administration for detection of HPV in cervical specimens collected by a physician using an endocervical brush/spatula or cervical broom and placed in the ThinPrep Pap Test PreservCyt collection containers. The performance characteristics of this test have been verified by the [facility] Molecular Infectious Disease laboratory. Correlate with separately reported cytology results, as applicable. Interpretive data last revised 23 Testing performed by: [facility], [address] [place]., [address] Endocervical 05/21/2023 3:54 PM CDT 05/22/2023 12:33 PM CDT Narrative [facility] - 05/23/2023 6:54 AM CDT Clinical history and diagnosis->DX Z12.4 Testing type->Screening Last menstrual period (date if known)->04/29/23 Previous negative PAP?->Yes Suad Ellis MD LAB BODY FLUIDS AND S TOOLS ORDERABLES Final Result [facility] [id number] [place] [address] from Last 3 Months or Most Recently Relevant to Health Maintenance Insurance [facility] HMO/POS [facility] HMO Care Teams Quality Checker Relationship Specialty Start Date End Date No, Physician PCP - General 04/29/19
--- OUTSIDE RECORDS SUMMARY | 2025-06-20 10:00 | XMS_ITS | Clinical Summary ---
Author Organization [facility] Address [address] [place] [address] Phone Care Team Providers Care Stockholder Name Role Phone Christiana Whitney APRN Primary Care Provider [phone] Allergies No known active allergies Medications pantoprazole (PROTONIX) 40 MG Tablet Delayed Response Take 1 Tablet by mouth daily. 30 Tablet 05/31/2024 Active ondansetron (ZOFRAN-ODT) 4 MG TABLET DISPERSIBLE Take 1 Tablet by mouth every 8 hours as needed for Nausea - 1st line. 10 Tablet 11/15/2024 Active Social History Tobacco Use Types Packs/Day Years Used Date Smoking Tobacco: Never Assessed Comments No Sex and Gender Information Value Date Recorded Sex Assigned at Not on file Legal Sex Female 10:32 PM CDT Gender Identity Not on file Sexual Orientation Not on file Last Filed Vital Signs Vital Sign Reading Time Taken Comments Blood Pressure 124/68 11/15/2024 10:06 AM MANAGED CARE ANALYST Pulse 88 11/15/2024 10:06 AM MANAGED CARE ANALYST Temperature 38.2 C (100.7 F) 11/15/2024 8:52 AM MANAGED CARE ANALYST Respiratory Rate 20 11/15/2024 10:06 AM MANAGED CARE ANALYST Oxygen Saturation 100% 11/15/2024 10:06 AM MANAGED CARE ANALYST Inhaled Oxygen Concentration - - Weight 99.8 kg (220 lb) 11/15/2024 8:52 AM MANAGED CARE ANALYST Height 175.3 cm (5' 9) 11/15/2024 8:52 AM MANAGED CARE ANALYST Body Mass Index 32.49 11/15/2024 8:52 AM MANAGED CARE ANALYST Plan of Treatment Health Maintenance Due Date Last Done Comments Hepatitis C Virus (HCV) Screening 1986 TdaP Immunization 1986 Hepatitis B Immunization (1 of 3 - 19+ 3-dose series) 2005 Pap Smear 2007 Human Papillomavirus (HPV) Immunization (1 - 3-dose SCDM series) 2013 Cervical Cancer Screening (CCS) 2016 HPV/Cotest 2016 Influenza Immunization (#1) 2025 SARS-COV-2 Immunization (3 season) 2025 06/03/2021, 05/04/2021 Respiratory Syncytial Virus (RSV) Immunization (Adult) (1 - 1-dose 75+ series) 2061 Meningococcal Immunization (ACWY) Aged Out No longer eligible b ased on patient's age to complete this topic Pneumococcal Immunization Combined Aged Out No longer eligible b ased on patient's age to complete this topic Rotavirus Immunization Aged Out No lo nger eligible based on patient's age to complete this topic Insurance [employer] Care Teams Stockholder Relationship Specialty Start Date End Date Christiana Whitney APRN PCP - General Advanced Practice Nurse 05/31/24
--- OUTSIDE RECORDS SUMMARY | 2025-06-20 10:00 | XMS_ITS | Clinical Summary ---
Author Organization [facility] Address [address] [place] [address] Care Team Providers Care Manager Warehouse Name Role Phone Reg Alas MD Primary Care Provider [phone] Source Comments [facility],non-owned Affiliates and Associated Physician Practices is amultiple site organization consisting of ambulatory clinics and hospital sitesin [place], [place], [place] and [place]. This disclosure is being madepursuant to the Care Everywhere program and may not contain all information available regarding this patient. Last updated 18.[facility] [employer] Allergies No known active allergies Medications * Be aware that medications may not be up to date on this document. Alwaysverify current medications with the patient. ibuprofen (MOTRIN) 600 MG tablet Take 1 Tab by mouth every 6 hours as needed for Pain. 60 Tab 0 04/08/2012 Active oxycodone-acetam inophen (PERCOCET) 5-325 MG tablet Take 1 Tab by mouth every 6 hours as needed for Pain. 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 Gender Identity Not on file Sexual Orientation Not on file Last Filed Vital Signs Vital Sign Reading Time Taken Comments Blood Pressure 128/67 04/09/2012 5:00 AM CDT Pulse 68 04/09/2012 5:00 AM CDT Temperature 36.6 C (97.8 F) 04/09/2012 5:00 AM CDT Respiratory Rate 18 04/09/2012 5:00 AM CDT Oxygen Saturation 98% 04/09/2012 5:00 AM CDT Inhaled Oxygen Concentration - - Weight 108.9 kg (240 lb) 04/08/2012 10:45 AM CDT Height 175.3 cm (5' 9) 04/08/2012 10:45 AM CDT Body Mass Index 35.44 04/08/2012 10:45 AM CDT Plan of Treatment Health Maintenance Due Date Last Done Comments HIV SCREENING 2001 HEPATITIS C SCREENING 09/16/2004 DTAP/TDAP/TD VACCINES (1 - Tdap) 2005 HEPATITIS B VACCINE (1 of 3 - 19+ 3-dose series) 2005 HPV VACCINE (1 - 3-dose SCDM series) 2013 DEPRESSION SCREENING 10/01/2024 COVID-19 VACCINE (1 - 2023-2 5 season) 2025 INFLUENZA VACCINE (#1) 2025 ZOSTER VACCINE (1 of 2) 2036 HIB VACCINE Aged Out No longer eligi ble based on patient's age to complete this topic MENINGOCOCCAL (Group B) VACC INE SHARED DECISION-MAKING Aged Out No longer eligibl e based on patient's age to complete this topic MENINGOCOCCAL GROUPS A/C/Y/W VACCINE Aged Out No longer eligible b ased on patient's age to complete this topic PNEUMOCOCCAL VACCINE Aged Out No long er eligible based on patient's age to complete this topic Insurance [employer] Advance Directives * FULL RESUSCITATION (Latest Code Status on File) Date Activated Date Inactivated Comments 04/08/2012 6:41 PM 04/09/2012 11:10 AM Care Teams Manager Warehouse Relationship Specialty Start Date End Date Reg Alas MD [address] [place] [address] PCP - General 09/19/22
[2025-06-20 12:09] LABS: BEDSIDEPREGUCG Negative (Negative)
[2025-06-20 12:12] LABS: Hematocrit 43.3 % (37.0-47.0); Hemoglobin 13.8 g/dL (12.0-15.0); Immature Granulocyte Percent A 0.1 % (0-0.5); Lymphocytes Absolute Auto 3.35 K/mm3 (0.9-3.2); Mean Corpuscular HGB Conc 31.9 g/dl (32-36); Mean Corpuscular Hemoglobin 29.9 pg (26-34); Mean Corpuscular Volume 93.7 fl (80-100); Nucleated Red Blood Cells Absolute Auto 0.000 K/mm3 (0.0-0.012); Nucleated Red Blood Cells Perc 0.0 % (0.0-0.2); Platelet Count Result 377 k/mm3 (150-375); Red Blood Count 4.62 M/mm3 (4.2-5.4); White Blood Count 9.5 K/mm3 (4.5-10.0)
[2025-06-20 12:13] LABS: Add Urine Microscopic? NO; Appearance Urine Clear (Clear); Glucose Urine UA Negative (Negative); Leukocyte Esterase Ur Negative LEU/UL (Negative); Nitrate Urine Negative (Negative); Specific Grav Ur 1.008 (1.001-1.035)
[2025-06-20 12:29] LABS: Alanine Aminotransferase 17 U/L (6-35); Albumin Level 4.6 g/dL (3.5-5.1); Alkaline Phosphatase 72 U/L (38-126); Anion Gap 7 mmol/L (4-12); Aspartate Amino Transferase 21 U/L (14-36); Bilirubin,Total 0.6 mg/dL (0.2-1.3); Blood Urea Nitrogen 15 mg/dL (7-17); Calcium 9.8 mg/dL (8.4-10.2); Carbon Dioxide 25 mmol/L (22-30); Chloride 105 mmol/L (98-107); Estimated CRCL calculation 95 ml/min; Estimated Glomerular Filt Rate > 60; Glucose 88 mg/dL (65-110); Lipase 117 U/L (23-300); Potassium 4.4 mmol/L (3.4-5.0); Sodium 137 mmol/L (137-145); Total Protein 8.3 g/dL (6.3-8.2)
--- NOTE | 2025-06-20 12:39 | ED_ITS ---
HPI - Abdominal Pain General Chief Complaint: Abdominal Pain Stated Complaint: abd pain Time Seen by Provider: 06/20/25 12:38 Source: patient Mode of arrival: ambulatory Limitations: no limitations History of Present Illness HPI narrative: 39 years old white female came to the ED with chest pain, back pain, left abdominal pain started 6 days ago, intermittent, steady over the last 2 days, dull aching, denying aggravating or relieving factors, associated with nausea, denies any fever or chills or vomiting or diarrhea or constipation. History of depression, anxiety, cholecystectomy, section and endometriosis Related Data Allergies Allergy/AdvReac Type Severity Reaction Status Date / Time No Known Allergies Allergy Verified 06/20/25 10:02 Review of Systems 2 Review of Systems: All systems reviewed & are unremarkable except as noted in HPI and below PMFSH Past Medical History Medical History GERD (gastroesophageal reflux disease) Anxiety Endometriosis Tubal Surgical History Surgical History Hx laparoscopic cholecystectomy 09/07/[address] Hughes. H/O LEEP H/O section Hx of tonsillectomy Family History Family History Father Hypertension Family history of type 2 diabetes mellitus Mother Hypertension Patient's mother is in good health Grandparent Cancer Grandparent Heart attack Social History Social History Smoking packs per day: 1.5 Smoking cigarettes per day: 30.0 Years smoked: 10 Smoking pack-years: 15.00 Smoking status: Former smoker Tobacco type: cigarettes Second hand tobacco smoke exposure: No Smoking end date: 07/04/20 Alcohol intake: current Alcohol use details: ONCE A MONTH Substance use: never Substance use type: does not use Lack of Transportation: No Lack of Food: Never True Current Housing: I Have Housing Concerned About Future Housing: No Difficulty Paying Gas/Electric Bills: No Difficulty Paying for Meds: No Currently Unemployed: No Education: High School Diploma/GED Difficulty w/ Childcare or Family Care: No Living arrangements: with family Occupation/Education: occupation Additional occupation/education comments: [employer] Supervisor Gender identity (if verbalized by the patient): Female Spiritual care concerns: No Exam 2 Narrative: General appearance: Well-developed, well-nourished Skin: Normal color Head: Normocephalic, nontraumatic Eyes: Clear conjunctiva ENT: Oropharynx normal, ears normal, nose normal Neck: Supple, nontender Chest and respiratory: Airway patent, no respiratory distress, no accessory muscle use Heart: Regular rate/rhythm Abdomen: Soft, mild tenderness epigastric and left upper quadrant, no organomegaly, quiet bowel sounds Vascular: Normal peripheral pulses, normal capillary refill. Musculoskeletal: Normal range of motion, nontender back Neurologic: Alert and oriented ?3, DAIRY BACTERIOLOGIST is normal as tested, no gross motor deficit Course Vital Signs Vital signs: Vital Signs Temperature 36.4 C 06/20/25 10:00 Pulse Rate 82 06/20/25 10:00 Respiratory Rate 18 06/20/25 10:00 Blood Pressure 150/98 H 06/20/25 10:00 Pulse Oximetry 100 06/20/25 10:00 Oxygen Delivery Room Air 06/20/25 10:00 Temperature 36.4 C 06/20/25 10:00 Pulse Rate 73 06/20/25 13:15 Respiratory Rate 18 06/20/25 13:15 Blood Pressure 144/80 H 06/20/25 13:15 Pulse Oximetry 100 06/20/25 13:15 Oxygen Delivery Room Air 06/20/25 10:00 MDM - Abdominal Pain MDM Narrative Medical decision making narrative: PATIENT CAME WITH MULTIPLE SYMPTOMS INCLUDING CHEST PAIN, BACK PAIN, LEFT UPPER QUADRANT PAIN VITAL SIGNS ARE STABLE PHYSICAL EXAMINATION SHOWING SLIGHT TENDERNESS UPPER QUADRANT OTHERWISE WITHIN NORMAL LIMIT DIFFERENTIAL DIAGNOSIS INCLUDE ANXIETY LIKE SYMPTOMS, COLITIS, DIVERTICULITIS, CONSTIPATION, URINARY TRACT INFECTION, PNEUMONIA, LESS LIKELY PULMONARY EMBOLISM BLOOD WORKUP TODAY INCLUDES CBC, CMP, TROPONIN, D-DIMER SHOWED INSIGNIFICANT ABNORMALITIES URINALYSIS SHOWED NO SIGNIFICANT ABNORMALITY CT ABDOMEN AND PELVIS WITH IV CONTRAST SHOWED NO SIGNIFICANT ABNORMALITY CHEST X-RAY SHOWED NO ACUTE ABNORMALITY EKG ON ARRIVAL SHOWED SINUS TACHYCARDIA AT 101 BEATS PER MINUTE, NONSPECIFIC ST T-WAVE ABNORMALITY, BORDERLINE EKG DIAGNOSIS CHEST PAIN AND ABDOMINAL PAIN OF UNKNOWN ETIOLOGY. ANXIETY/STRESS RELATED SYMPTOM IS A POSSIBILITY. DISCHARGED HOME ON TYLENOL, IBUPROFEN NEEDED Differential Diagnosis Differential diagnosis: Likely other ( ABOVE) Medical Records Attestation: I reviewed the patient's medical records. Lab Data Attestation: I reviewed the patient's lab results. 06/20/25 12:03 06/20/25 12:03 Labs: Lab Results 06/20/25 06/20/25 Range/Units 12:03 12:08 WBC 9.5 (4.5-10.0) K/mm3 RBC 4.62 (4.2-5.4) M/mm3 Hgb 13.8 (12.0-15.0) g/dL Hct 43.3 (37.0-47.0) % MCV 93.7 (80-100) fl MCH 29.9 (26-34) pg MCHC 31.9 L (32-36) g/dl RDW 13.5 (11.5-14.5) % Plt Count 377 H (150-375) k/mm3 MPV 9.2 (7.4-10.4) fl Immature Gran % (Auto) 0.1 (0-0.5) % Neut % (Auto) 57.8 (45.5-73.1) % Lymph % (Auto) 35.4 (18.3-44.2) % [facility] % (Auto) 5.7 (2.6-8.5) % Eos % (Auto) 0.6 (0-4.4) % Baso % (Auto) 0.4 (0.2-1.2) % Lymph # (Auto) 3.35 H (0.9-3.2) K/mm3 [facility] # (Auto) 0.5 (0.1-0.6) K/mm3 Eos # (Auto) 0.1 (0-0.3) K/mm3 Baso # (Auto) 0.0 (0.0-0.1) K/mm3 Abs Immat Gran (auto) 0.01 (0.00-0.031) K/mm3 Absolute Neuts (auto) 5.5 (1.3-6.7) K/mm3 Absolute Nucleated RBC 0.000 (0.0-0.012) K/mm3 Nucleated RBC % 0.0 (0.0-0.2) % D-Dimer < 0.27 (<0.48) ug/mL Sodium 137 (137-145) mmol/L Potassium 4.4 (3.4-5.0) mmol/L Chloride 105 (98-107) mmol/L Carbon Dioxide 25 (22-30) mmol/L Anion Gap 7 (4-12) mmol/L BUN 15 (7-17) mg/dL Creatinine 0.90 (0.7-1.0) mg/dL Estim Creat Clear Calc 95 ml/min Estimated GFR > 60 (59 - ) Glucose 88 (65-110) mg/dL Calcium 9.8 (8.4-10.2) mg/dL Total Bilirubin 0.6 (0.2-1.3) mg/dL AST 21 (14-36) U/L ALT 17 (6-35) U/L Alkaline Phosphatase 72 (38-126) U/L Total Protein 8.3 H (6.3-8.2) g/dL Albumin 4.6 (3.5-5.1) g/dL Lipase 117 (23-300) U/L Urine Color Yellow (Yellow) Urine Appearance Clear (Clear) Urine pH 5.5 (5.0-9.0) Ur Specific [place] 1.008 (1.001-1.035) Urine Protein Negative (Negative) mg/dL Urine Glucose (UA) Negative (Negative) mg/dL Urine Ketones Negative (Negative) mg/dL Ur Blood (Man) Negative (Negative) Urine Nitrate Negative (Negative) Urine Bilirubin Negative (Negative) Urine Urobilinogen 0.2 (<2.0) mg/dL Leukocyte Esterase Rfl Negative (Negative) CHANDRIKA/UL POC Urine HCG, Qual Negative (Negative) Imaging Data Radiologist's impression: ITS Impressions Chest X-Ray 06/20/25 13:46 IMPRESSION: 1. No acute cardiopulmonary findings. Abdomen/Pelvis CT 06/20/25 14:36 IMPRESSION: 1. No acute intra-abdominal process. Incidental findings above ECG Data EKG #1: Attestation: I personally reviewed and interpreted this ECG as follows: ECG completion date: 06/20/25 Prior ECG tracings: not available for review Interpretation: SINUS TACHYCARDIA AT 1:00 A.M. 1 BEATS PER MINUTE, NONSPECIFIC ST T-WAVE ABNORMALITY, BORDERLINE EKG, ABNORMAL EKG, NO PREVIOUS EKG AVAILABLE FOR COMPARISON Critical Care Time Critical Care Time Critical Care Time: No Discharge Plan Discharge Clinical Impression: Chest pain, Abdominal pain Patient Disposition: Home Condition: Stable Instructions: Chest Pain (DC), Abdominal Pain (ED) Additional Instructions: RETURN IF SYMPTOMS ARE WORSENING , CALL YOUR FAMILY PHYSICIAN FOR APPOINTMENT, TAKE TYLENOL NEEDED FOR ACHES AND PAIN, CONTINUE HOME MEDICATIONS. Patient Language: Citizen Of [place] Prescriptions: No Action Humira(CF) 40 mg/0.4 mL syringe kit 40 mg subcut WEEKLY Qty: 2 1RF ondansetron HCl 8 mg tablet 8 mg PO Q12H PRN (Reason: nausea and vomiting) Qty: 20 0RF diazepam [Valium] 5 mg tablet 5 mg PO .COMPLEX PRN (Reason: fear of flying) Qty: 4 0RF Rx Instructions: 5 mg orally Take 30 minutes prior to boarding flight PRN; azithromycin 250 mg tablet See Rx Instructions PO .COMPLEX Qty: 6 0RF Rx Instructions: For 250 mg dose pack: take 500 mg today (day 1), then 250 mg for 4 days (days 2-5) PO methylprednisolone [Medrol ([place]ug[place])] 4 mg tablets,dose pack See Rx Instructions PO PER PKG DIR Qty: 21 0RF Rx Instructions: PO PER PKG DIR valacyclovir 500 mg tablet See Rx Instructions .ROUTE .COMPLEX Qty: 90 1RF Dose Instruction: TAKE 1 TABLET BY MOUTH EVERY DAY FOR COLD SORES Rx Instructions: TAKE 1 TABLET BY MOUTH EVERY DAY FOR COLD SORES topiramate 50 mg tablet 50 mg PO BID Qty: 180 1RF buspirone 7.5 mg tablet See Rx Instructions .ROUTE .COMPLEX Qty: 180 1RF Dose Instruction: TAKE 1 TABLET BY MOUTH TWICE A DAY Rx Instructions: TAKE 1 TABLET BY MOUTH TWICE A DAY bupropion HCl 150 mg tablet extended release 24 hr See Rx Instructions .ROUTE .COMPLEX Qty: 90 3RF Dose Instruction: TAKE 1 TABLET BY MOUTH EVERY DAY IN THE MORNING Rx Instructions: TAKE 1 TABLET BY MOUTH EVERY DAY IN THE MORNING fluconazole 150 mg tablet 150 mg PO ONCE Qty: 1 0RF Rx Instructions: as a single dose phentermine 37.5 mg capsule 37.5 mg PO DAILY Qty: 30 0RF lorazepam 0.5 mg tablet 0.5 mg PO DAILY PRN (Reason: anxiety) Qty: 30 0RF Follow-up/Referrals: Christiana Whitney APRN [Primary Care Provider, Family Practice]
[2025-06-20] MEDS: MORPHINE SULFATE (*CRX) 4 MG/ML INJ IV PUSH (13:05)
[2025-06-20] MEDS: SODIUM CHLORIDE 0.9% IV 1,000 ML 999 ML IV CONT (13:05)
[2025-06-20] MEDS: ONDANSETRON INJ 4 MG/2 ML VIAL IV PUSH (13:06)
[2025-06-20 13:15] VITALS: BP 144/80; PULSE 73; RESP 18; O2SAT 100
[2025-06-20 16:02] VITALS: BP 142/80; PULSE 88; RESP 18; O2SAT 100
== END 2025-06-20 16:03 | disposition home or self-care (01) ==
PROVIDERS: Emergency Provider Emergency Medicine; PCP Nurse Practitioner Adult Health
DX: R07.9 Chest pain, unspecified (principal); R10.9 Unspecified abdominal pain; Z87.891 Personal history of nicotine dependence
CPT/HCPCS: 36415; 71046; 74177; 80053; 81003; 81025; 83690; 85025; 85380; 96361; 96374; 96375; 99284; J2270; J2405; J7030; Q9967